=== PATIENT | male | born 1950 | race Caucasian/White ===

== ENCOUNTER 2016-12-14 18:38 | Emergency (ER) | payer MEDICARE, BC ==
[2016-12-14 18:52] VITALS: BP 131/108; PULSE 88; RESP 18; TEMP 97.9
[2016-12-14] MEDS ORDERED: PROPARACAINE 0.5% OPHTH DROPS 15 ML BTL RIGHT EYE STA (18:54)
--- NOTE | 2016-12-14 19:08 | XR ---
EXAMINATION TYPE: XR knee complete LT DATE OF EXAM: 12/14/2016 COMPARISON: NONE HISTORY: Knee pain TECHNIQUE: 3 views FINDINGS: I see no fracture nor dislocation. There is minor spurring of the medial femoral and tibial condyles. There is calcification inferior to the patella that could relate to old injury. There is n o sign of joint effusion. IMPRESSION: Mild osteoarthritis. No fracture.
--- NOTE | 2016-12-14 19:13 | ED ---
Lower Extremity Injury HPI - General Chief Complaint: Extremity Injury, Lower Stated Complaint: L knee injury Time Seen by Provider: 12/14/16 18:47 Source: patient, RN notes reviewed Mode of arrival: wheelchair Limitations: no limitations - History of Present Illness Initial Comments: 66-year-old male presents emergency Department chief complaint left knee pain. Patient states that he has some soreness over the last few days but states that he took 2 steps leaving the final to get back into a [id number] and states that he had instant pain. He states is worse when he began rating really no pain at rest does have some discomfort with passive range of motion. Denies any falls no traumas. Patient had prior orthopedic [facility]. Patient denies any swelling, ecchymosis or erythema to his left knee no history gout. - Related Data Home Medications Medication Instructions Recorded Confirmed No Known Home Medications [No 12/14/16 12/14/16 Known Home Medications] Allergies Allergy/AdvReac Type Severity Reaction Status Date / Time No Known Allergies Allergy Verified 12/14/16 18:52 Review of Systems ROS Statement: Those systems with pertinent positive or pertinent negative responses have been documented in the HPI. ROS Other: All systems not noted in ROS Statement are negative. Past Medical History Past Medical History: No Reported History History of Any Multi-Drug Resistant Organisms: None Reported Past Surgical History: Orthopedic Surgery Additional Past Surgical History / Comment(s): Right shoulder, right knee Past Psychological History: No Psychological Hx Reported Smoking Status: Never smoker Past Alcohol Use History: None Reported Past Drug Use History: None Reported General Exam Limitations: no limitations General appearance: alert, in no apparent distress Respiratory exam: Present: normal lung sounds bilaterally. Absent: respiratory distress, wheezes, rales, rhonchi, stridor Cardiovascular Exam: Present: regular rate, normal rhythm, normal heart sounds. Absent: systolic murmur, diastolic murmur, rubs, gallop, clicks Extremities exam: Present: other (Left knee patient has some mild discomfort with range of motion there is no tenderness with palpation and no laxity with valgus or varus does have some discomfort with anterior drawer test but no true laxity noted pedal pulses are equal bilaterally) Neurological exam: Present: alert, oriented X3, CN II-XII intact, reflexes normal. Absent: motor sensory deficit Course Vital Signs 12/14/16 18:50 Temperature 97.9 F Pulse Rate 88 Respiratory 18 Rate Blood Pressure 131/108 O2 Sat by Pulse 96 Oximetry Medical Decision Making - Medical Decision Making 66-year-old presented for left knee. Patient is no acute fracture patient has severe arthritis noted he may have meniscus injury we did discuss this. Patient will follow-up with orthopedics as [facility] is [facility] past. Return parameters were discussed. Disposition Clinical Impression: Left knee injury Disposition: HOME SELF-CARE Condition: Stable Instructions: Knee Pain (ED) Additional Instructions: Please return to the Emergency Department if symptoms worsen or any other concerns. Referrals: Bryant Squires MD [Primary Care Provider] - 1-2 days Louis Huntley MD [STAFF PHYSICIAN] - 1-2 days Time of Disposition: 19:12
== END 2016-12-14 19:20 | disposition home or self-care (01) ==
LOC: EC 18:38
DX: S89.92XA Unspecified injury of left lower leg, initial encounter (principal); M25.562 Pain in left knee; Z98.890 Other specified postprocedural states; X58.XXXA Exposure to other specified factors, initial encounter
CPT/HCPCS: 99283

== ENCOUNTER → 2017-01-19 | Outpatient (CLI) | payer MEDICARE, BC ==
[2017-01-19 11:12] LABS: Aty Lym Flag Slight; CH 31.6; CHCM 33.5; HCT 49.1 % (39.0-53.0); HDW 2.62; HGB 16.2 gm/dL (13.0-17.5); MCH 31.3 pg (25.0-35.0); MCHC 33.1 g/dL (31.0-37.0); MCV 94.8 fL (80.0-100.0); Mean Platelet Volume 6.8; RBC 5.18 m/uL (4.30-5.90); RDW 13.5 % (11.5-15.5); WBC 3.9 k/uL (3.8-10.6); WBC (Perox) 4.23
[2017-01-19 12:39] LABS: Add Differential Manual Differential
[2017-01-19 12:41] LABS: Manual Review Performed; Nucleated Red Blood Cells 0 /100 WBC (0-0); Total Cells Counted 100
[2017-01-19 12:47] LABS: Erythrocyte Sedimentation Rate 24 mm/hr (0-15)
[2017-01-19 13:01] LABS: RBC, Body Fluid 0 /uL; Synovial Crystal Source Left Knee
== END | disposition home or self-care (01) ==
LOC: LABWHC1 10:16
PROVIDERS: ATTEND Orthopaedic Surgery
DX: M17.12 Unilateral primary osteoarthritis, left knee (principal); S83.242D Other tear of medial meniscus, current injury, left knee, subsequent encounter; M25.462 Effusion, left knee
CPT/HCPCS: 36415; 85025; 85652; 86140; 87070; 87075; 87205; 89050; 89060

== ENCOUNTER → 2017-03-11 | Outpatient (CLI) | payer MEDICARE, BC ==
[2017-03-11 11:53] LABS: Basophils % (A) 1 %; CH 32.3; Eosinophils # (A) 0.3 k/uL (0-0.7); Eosinophils % (A) 3 %; HCT 45.5 % (39.0-53.0); HDW 2.63; HGB 14.6 gm/dL (13.0-17.5); Luc # (Auto) 0.13; Luc % (Auto) 2; Lymphocytes # (A) 0.9 k/uL (1.0-4.8); Lymphocytes % (A) 12 %; MCH 30.8 pg (25.0-35.0); MCHC 32.2 g/dL (31.0-37.0); MCV 95.6 fL (80.0-100.0); Mean Platelet Volume 7.4; Monocytes # (A) 0.3 k/uL (0-1.0); Monocytes % (A) 5 %; Neutrophils % (A) 78 %; RBC 4.75 m/uL (4.30-5.90); RDW 14.8 % (11.5-15.5); WBC 7.7 k/uL (3.8-10.6); WBC (Perox) 7.54
[2017-03-11 13:36] LABS: RBC, Body Fluid 6250 /uL
[2017-03-11 13:54] LABS: Synovial Crystal Source Left Knee
[2017-03-11 15:08] LABS: Erythrocyte Sedimentation Rate 19 mm/hr (0-15)
== END | disposition home or self-care (01) ==
LOC: LABWHC1 11:23
PROVIDERS: ATTEND Orthopaedic Surgery
DX: Z48.89 Encounter for other specified surgical aftercare (principal); M25.572 Pain in left ankle and joints of left foot; M25.562 Pain in left knee; M17.12 Unilateral primary osteoarthritis, left knee; M25.462 Effusion, left knee
CPT/HCPCS: 36415; 85025; 85652; 86140; 87070; 87075; 87205; 89050; 89060

== ENCOUNTER → 2018-02-07 | Outpatient (CLI) | payer MEDICARE, BC ==
--- NOTE | 2018-02-07 18:36 | ECHOF ---
Referral Reason:R01.1 Cardiac Murmur MEASUREMENTS -------- HEIGHT: 182.9 cm WEIGHT: 99.8 kg BP: 164/80 RVIDd: 3.2 cm (< 3.3) IVSd: 1.4 cm (0.6 - 1.1) LVIDd: 4.7 cm (3.9 - 5.3) LVPWd: 1.5 cm (0.6 - 1.1) IVSs: 2.1 cm LVIDs: 3.1 cm LVPWs: 1.7 cm LA Diam: 3.8 cm (2.7 - 3.8) LAESV Index (A-L): 30.38 ml/m Ao Diam: 3.9 cm (2.0 - 3.7) AV Cusp: 1.8 cm (1.5 - 2.6) MV EXCURSION: 20.824 mm (> 18.000) MV EF SLOPE: 83 mm/s (70 - 150) EPSS: 0.3 cm MV E Mainor: 0.73 m/s MV DecT: 211 ms MV A Mainor: 0.60 m/s MV E/A Ratio: 1.21 AR PHT: 810 ms FINDINGS -------- Sinus rhythm. This was a technically adequate study. The left ventricular size is normal. There is moderate concentric left ventricular hypertrophy. O verall left ventricular systolic function is normal with, an EF between 60 - 65 %. The right ventricle is normal in size. LA is midly dilated 29-33ml/m2. The right atrium is normal in size. There is mild aortic valve sclerosis. There is mild aortic regurgitation. Mild mitral annular calcification present. The tricuspid valve appears structurally normal. Trace/mild (physiologic) pulmonic regurgitation. The aortic root is dilated measuring 3.9cm. Normal inferior vena cava with normal inspiratory collapse consistent with estimated right atrial pre ssure of 5 mmHg. The inferior vena cava is mildly dilated. There is no pericardial effusion. CONCLUSIONS -------- 1. Sinus rhythm. 2. This was a technically adequate study. 3. The left ventricular size is normal. 4. There is moderate concentric left ventricular hypertrophy. 5. Overall left ventricular systolic function is normal with, an EF between 60 - 65 %. 6. The right ventricle is normal in size. 7. LA is midly dilated 29-33ml/m2. 8. The right atrium is normal in size. 9. There is mild aortic valve sclerosis. 10. There is mild aortic regurgitation. 11. Mild mitral annular calcification present. 12. The tricuspid valve appears structurally normal. 13. Trace/mild (physiologic) pulmonic regurgitation. 14. The aortic root is dilated measuring 3.9cm. 15. Normal inferior vena cava with normal inspiratory collapse consistent with estimated right atrial pressure of 5 mmHg. 16. The inferior vena cava is mildly dilated. 17. There is no pericardial effusion. SOFTWARE IMPLEMENTATION SPECIALIST: Lori Garcia RDCS
== END | disposition home or self-care (01) ==
LOC: RADECHMAIN 16:14
PROVIDERS: ATTEND Family Medicine
DX: I35.1 Nonrheumatic aortic (valve) insufficiency (principal); I05.9 Rheumatic mitral valve disease, unspecified; I37.1 Nonrheumatic pulmonary valve insufficiency
CPT/HCPCS: 93306

== ENCOUNTER 2018-07-15 13:30 | Emergency (ER) | payer MEDICARE, BC ==
--- NOTE | 2018-07-15 14:23 | XR ---
Calcaneus and right ankle HISTORY: Trauma and pain 3 views of the right ankle and 2 views of the calcaneus. There is an intra-articular comminuted distal tibial fracture with slight displacement, associated so ft tissue swelling and likely joint effusion. No evident dislocation. Ossific densities about the ank le are noted, fragment distal to the fibula appears to be well-corticated. There are vascular calcifi cations present. Small plantar calcaneal spur. Small ossific density lateral to the calcaneus could r epresent a small chip fracture. IMPRESSION: Fractures described.
--- NOTE | 2018-07-15 14:48 | ED ---
General Adult HPI - General Chief complaint: Fall Stated complaint: Fell Time Seen by Provider: 07/15/18 13:44 Source: patient, RN notes reviewed Mode of arrival: ambulatory Limitations: no limitations - History of Present Illness Initial comments: Patient 68-year-old male presenting to the emergency room today with a chief complaint of injury to the right ankle. He does admit that he was working on a garage door when one of the [place] came hit him causing her to fall off the ladder down onto the cement ground. He states landed on the right foot. Patient does admit to pain to the right ankle right heel area. Denies any head injury or loss consciousness. Patient does admit to small cut to the inside of the upper lip. He states his tetanus is up-to-date. Patient denies any other complaints or symptoms. Patient denies any recent fever, chills, shortness of breath, chest pain, back pain, abdominal pain, nausea or vomiting, numbness or tingling, headaches or visual changes, or any other complaints. - Related Data Previous Rx's Medication Instructions Recorded Hydrocodone/Acetaminophen [[place] 1 tab PO Q6HR PRN #20 tab 12/14/16 5-325] Allergies Allergy/AdvReac Type Severity Reaction Status Date / Time No Known Allergies Allergy Verified 07/15/18 13:42 Review of Systems ROS Statement: Those systems with pertinent positive or pertinent negative responses have been documented in the HPI. ROS Other: All systems not noted in ROS Statement are negative. Past Medical History Past Medical History: Hypertension Additional Past Medical History / Comment(s): inflammation History of Any Multi-Drug Resistant Organisms: None Reported Past Surgical History: Orthopedic Surgery Additional Past Surgical History / Comment(s): Right shoulder, right knee Past Psychological History: No Psychological Hx Reported Smoking Status: Never smoker Past Alcohol Use History: None Reported Past Drug Use History: None Reported General Exam - General Exam Comments Initial Comments: General: The patient is awake and alert, in no distress, and does not appear acutely ill. Neck: The neck is supple, there is no tenderness or JVD. Musculoskeletal: Patient has normal appearance right foot and ankle no obvious deformity. He does have some mild tenderness over both lateral medial malleolus of the right ankle. No tenderness down to the right foot. There is some tenderness over the calcaneus. No tenderness to the right knee. No tenderness to the low back. Pedal pulses 2+. Sensation intact. Neurological: A&O x 3. CN II-XII intact, There are no obvious motor or sensory deficits. Coordination appears grossly intact. Speech is normal. Skin: Skin is warm and dry and no rashes or lesions are noted. Psychiatric: Normal mood and affect. Limitations: no limitations Course Vital Signs 07/15/18 13:38 Temperature 98.0 F Pulse Rate 65 Respiratory 16 Rate Blood Pressure 189/98 O2 Sat by Pulse 96 Oximetry Procedures - Procedures Initial comment: Short leg posterior OCL splint applied to the right ankle. Neurovascular rechecked and intact. Medical Decision Making - Medical Decision Making X-ray reviewed and does show distal tibia fracture. Results were discussed with the patient. Patient splinted in a posterior short leg OCL splint. Does have crutches is advised nonweightbearing. Advised following up with the orthopedic doctor over the next 2 days. Advised return if symptoms increase or worsen or for any other concerns. Disposition Clinical Impression: Ankle fracture, right Disposition: HOME SELF-CARE Condition: Good Instructions: Ankle Fracture (DC) Additional Instructions: Please see splinted in place until follow-up appointment with orthopedics over the next 2 days. Please continue to ice elevate the affected area. Please use crutches nonweightbearing. Please return to emergency room for any other concerns. Is patient prescribed a controlled substance at d/c from ED?: No Referrals: David Goins MD [Primary Care Provider] - 1-2 days Pérez Oliva MD [Medical Doctor] - 1-2 days Time of Disposition: 14:48
[2018-07-15 15:12] VITALS: BP 168/72; PULSE 88; RESP 19; TEMP 97.6
== END 2018-07-15 15:00 | disposition home or self-care (01) ==
LOC: EC 13:30
DX: S82.301A Unspecified fracture of lower end of right tibia, initial encounter for closed fracture (principal); S01.511A Laceration without foreign body of lip, initial encounter; W11.XXXA Fall on and from ladder, initial encounter; Y93.89 Activity, other specified; Y92.009 Unspecified place in unspecified non-institutional (private) residence as the place of occurrence of the external cause
CPT/HCPCS: 29515; 99283

== ENCOUNTER → 2019-04-09 | Outpatient (CLI) | payer MEDICARE, BC ==
--- NOTE | 2019-04-10 11:07 | US ---
EXAMINATION TYPE: US kidneys/renal and bladder DATE OF EXAM: 04/09/2019 COMPARISON: NONE CLINICAL HISTORY: R94.4 Abnormal results of kidney function studies. no symptoms, on anti-inflammator ies EXAM MEASUREMENTS: Right Kidney: 12.5 x 6.3 x 8.3 cm Left Kidney: 11.9 x 5.0 x 5.3 cm Right Kidney: multiple cystic areas seen, largest = 5.0cm. There is poor cortical medullary different iation. The right kidney is not entirely visualized. Left Kidney: No hydronephrosis or masses seen Bladder: wnl Bilateral Jets seen: yes There is no evidence for hydronephrosis at this point in time. No nephrolithiasis is seen. The urina ry bladder is anechoic. Bilateral ureteral jets are seen. IMPRESSION: 1. Multiple right renal cysts are seen however the entirety of the right kidney is not visualized and CT could be considered to further evaluate for any solid renal mass. There is also poor corticomedul paulo differentiation suggesting sequela of chronic medical renal disease on the right there is asymme tric to the left. 2. No evidence of hydronephrosis of either kidney.
== END | disposition home or self-care (01) ==
LOC: RADUSWWP 16:20
PROVIDERS: ATTEND Family Medicine
DX: Q61.02 Congenital multiple renal cysts (principal); N18.3 Chronic kidney disease, stage 3 (moderate)
CPT/HCPCS: 76770

== ENCOUNTER 2019-08-29 17:28 | Emergency (ER) | payer OTHER, MEDICARE, BC ==
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
[2019-08-29 19:16] VITALS: BP 144/96; PULSE 70; RESP 16; TEMP 97.9
== END 2019-08-29 19:10 | disposition home or self-care (01) ==
LOC: EC 17:28
DX: M25.512 Pain in left shoulder (principal); M54.2 Cervicalgia; I10 Essential (primary) hypertension; Z98.890 Other specified postprocedural states; V59.49XA Driver of pick-up truck or van injured in collision with other motor vehicles in traffic accident, initial encounter; Y92.410 Unspecified street and highway as the place of occurrence of the external cause
CPT/HCPCS: 99284

== ENCOUNTER 2020-03-17 11:25 | Emergency (ER) | payer MEDICARE, BC ==
[2020-03-17 11:47] VITALS: BP 173/87; PULSE 76; RESP 18; TEMP 98.1
--- NOTE | 2020-03-17 12:37 | XR ---
EXAMINATION TYPE: XR shoulder complete RT DATE OF EXAM: 03/17/2020 CLINICAL HISTORY: Pain from fall injury last night. TECHNIQUE: Three views of the right shoulder are obtained. COMPARISON: None. FINDINGS: There is no acute fracture/dislocation evident in the right shoulder. Mild to moderate mar[place] rowing at acromioclavicular joint with curvilinear well-defined 12 x 5 mm ossific density could refle ct product of old trauma or old fractured osteophyte. Glenohumeral joint shows [id number] narro wing. Subchondral cystic change superolateral humeral head is present. The visualized ribs are intac t and unremarkable. IMPRESSION: There is no acute fracture or dislocation in the right shoulder.
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
== END 2020-03-17 12:46 | disposition home or self-care (01) ==
LOC: EC 11:25
DX: S46.911A Strain of unspecified muscle, fascia and tendon at shoulder and upper arm level, right arm, initial encounter (principal); W18.30XA Fall on same level, unspecified, initial encounter; Y92.821 Forest as the place of occurrence of the external cause
CPT/HCPCS: 99284

== ENCOUNTER → 2020-06-17 | Outpatient (CLI) | payer MEDICARE, BC ==
[2020-06-17 13:44] LABS: Anisocytosis Slight; Basophils # (A) 0.1 k/uL (0-0.2); Basophils % (A) 1 %; Eosinophils # (A) 0.3 k/uL (0-0.7); Eosinophils % (A) 4 %; HCT 39.9 % (39.0-53.0); HGB 12.2 gm/dL (13.0-17.5); Hypochromasia Marked; Lymphocytes % (A) 14 %; MCH 25.9 pg (25.0-35.0); MCHC 30.6 g/dL (31.0-37.0); MCV 84.5 fL (80.0-100.0); Mean Platelet Volume 7.3; Monocytes # (A) 0.5 k/uL (0-1.0); Monocytes % (A) 7 %; Neutrophils # (A) 5.1 k/uL (1.3-7.7); Neutrophils % (A) 72 %; Platelet Count 284 k/uL (150-450); RBC 4.72 m/uL (4.30-5.90); RDW 17.3 % (11.5-15.5)
[2020-06-17 19:50] LABS: INR 0.92 (0.90-1.11)
[2020-06-17 19:54] LABS: African American GFR (CKD) 58.2 (60.0-200.0); Albumin 4.2 g/dL (3.80-4.90); Albumin/Globulin Ratio 1.62 (1.60-3.17); Anion Gap 6.3 mmol/L (4.00-12.00); Calcium 9.5 mg/dL (8.7-10.3); Carbon Dioxide 28.7 mmol/L (21.6-31.8); Globulin 2.6 g/dL (1.6-3.3); Non-African American GFR(CKD) 50.2 (60.0-200.0); Potassium 5.2 mmol/L (3.5-5.5); Total Bilirubin 0.7 mg/dL (0.2-1.2); Total Protein 6.8 g/dL (6.2-8.2)
== END | disposition home or self-care (01) ==
LOC: LABWHC1 11:22
PROVIDERS: ATTEND Nurse Practitioner Family
DX: Z01.818 Encounter for other preprocedural examination (principal)
CPT/HCPCS: 36415; 80053; 85025; 85610; 93005

== ENCOUNTER 2020-08-01 16:08 | Emergency (ER) | payer MEDICARE, BC ==
[2020-08-01 16:12] VITALS: PULSE 89; RESP 18
--- NOTE | 2020-08-01 17:01 | XR ---
EXAMINATION TYPE: XR shoulder complete RT DATE OF EXAM: 08/01/2020 COMPARISON: 03/17/2020 HISTORY: Shoulder pain TECHNIQUE: 3 views FINDINGS: There is right shoulder prosthesis. Components appear in anatomic position. I see no fractu re nor dislocation. IMPRESSION: No fracture seen.
--- NOTE | 2020-08-01 17:09 | ED ---
Upper Extremity HPI - General Chief Complaint: Extremity Injury, Upper Stated Complaint: Shoulder injury Time Seen by Provider: 08/01/20 16:13 Source: patient, old records reviewed Mode of arrival: ambulatory Limitations: no limitations - History of Present Illness Initial Comments: 70-year-old male presents emergency Department chief complaint of right shoulder pain. Patient had total shoulder replacement one month ago by Dr. Otto. Patient states that he was doing well had full range of motion with states that he pulls of her back on his tractor and states he felt a pop. Patient states she's had pain has not gone down. Patient does not take any current narcotic pain meds. Denies any numbness or tingling no change in color or warmth to his arm. Patient denies any chest pain. - Related Data Home Medications Medication Instructions Recorded Confirmed Carvedilol [Coreg] 3.125 mg PO BID 08/01/20 08/01/20 Cyanocobalamin (Vitamin B-12) 10,000 mcg PO DAILY 08/01/20 08/01/20 [Vitamin B-12] Finasteride [Proscar] 5 mg PO HS 08/01/20 08/01/20 Tamsulosin HCl [Flomax] 0.4 mg PO HS 08/01/20 08/01/20 lisinopriL [Zestril] 5 mg PO HS 08/01/20 08/01/20 Allergies Allergy/AdvReac Type Severity Reaction Status Date / Time No Known Allergies Allergy Verified 08/01/20 16:46 Review of Systems ROS Statement: Those systems with pertinent positive or pertinent negative responses have been documented in the HPI. ROS Other: All systems not noted in ROS Statement are negative. Past Medical History Past Medical History: Hypertension Additional Past Medical History / Comment(s): inflammation History of Any Multi-Drug Resistant Organisms: None Reported Past Surgical History: Orthopedic Surgery Additional Past Surgical History / Comment(s): Right shoulder, right knee Past Psychological History: No Psychological Hx Reported Past Alcohol Use History: None Reported Past Drug Use History: None Reported General Exam Limitations: no limitations General appearance: alert, in no apparent distress Head exam: Present: atraumatic, normocephalic, normal inspection ENT exam: Present: normal exam, mucous membranes moist Neck exam: Present: normal inspection, full ROM. Absent: tenderness, meningismus, lymphadenopathy Respiratory exam: Present: normal lung sounds bilaterally. Absent: respiratory distress, wheezes, rales, rhonchi, stridor Cardiovascular Exam: Present: regular rate, normal rhythm, normal heart sounds. 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 Patient most likely has a ligamentous strain. Patient will follow-up with his surgeon will continue anti-inflammatories, icing we discussed sling use for rest but to limit secondary to causing decreased range of motion. Disposition Clinical Impression: Right shoulder pain Disposition: HOME SELF-CARE Condition: Stable Instructions (If sedation given, give patient instructions): Shoulder Pain (ED) Additional Instructions: Please return to the Emergency Department if symptoms worsen or any other concerns. Is patient prescribed a controlled substance at d/c from ED?: No Referrals: David Goins MD [Primary Care Provider] - 1-2 days Time of Disposition: 17:09
[2020-08-01 17:35] VITALS: BP 155/84
[2020-08-01 17:54] VITALS: TEMP 98.1
== END 2020-08-01 17:27 | disposition home or self-care (01) ==
LOC: EC 16:08
DX: M25.511 Pain in right shoulder (principal); I10 Essential (primary) hypertension; Z79.899 Other long term (current) drug therapy; Z96.611 Presence of right artificial shoulder joint
CPT/HCPCS: 99284

== ENCOUNTER → 2020-08-19 | Outpatient (CLI) | payer MEDICARE, BC ==
[2020-08-19 22:17] LABS: Basophils # (A) 0.06 X 10*3/uL (0.00-0.10); Basophils % (A) 0.7 %; Eosinophils # (A) 0.52 X 10*3/uL (0.04-0.35); Eosinophils % (A) 6.4 %; HCT 35.3 % (39.6-50.0); HGB 10.1 g/dL (13.0-17.0); Lymphocytes # (A) 1.31 X 10*3/uL (0.90-5.00); Lymphocytes % (A) 16.1 %; MCH 24.6 pg (27.0-32.0); MCHC 28.6 g/dL (32.0-37.0); MCV 86.1 fL (80.0-97.0); Mean Platelet Volume 10.5 fL (9.5-12.2); Monocytes # (A) 0.81 X 10*3/uL (0.20-1.00); Neutrophils % (A) 66.6 %; Platelet Count 411 X 10*3/uL (140-440); RDW 16.7 % (11.5-14.5); WBC 8.12 X 10*3/uL (4.50-10.00)
[2020-08-20 00:50] LABS: Erythrocyte Sedimentation Rate 29 mm/Hr (0-20)
== END | disposition home or self-care (01) ==
LOC: LABWHC1 15:44
PROVIDERS: ATTEND Nurse Practitioner
DX: M75.101 Unspecified rotator cuff tear or rupture of right shoulder, not specified as traumatic (principal); Z47.1 Aftercare following joint replacement surgery; Z96.611 Presence of right artificial shoulder joint
CPT/HCPCS: 36415; 85025; 85652; 86140

== ENCOUNTER → 2021-07-13 | Outpatient (CLI) | payer MEDICARE, BC | END | disposition home or self-care (01) | LOC: LABWHC1 06:59 | PROVIDERS: ATTEND Orthopaedic Surgery Foot and Ankle Surgery | DX: U07.1 COVID-19 (principal) | CPT/HCPCS: U0003; C9803 ==

== ENCOUNTER → 2022-07-13 | Outpatient (CLI) | payer MEDICARE, BC ==
[2022-07-13 18:33] LABS: Basophils # (A) 0.05 X 10*3/uL (0.00-0.10); Basophils % (A) 0.6 %; Eosinophils % (A) 3.5 %; HCT 34.9 % (39.6-50.0); HGB 9.5 g/dL (13.0-17.0); Immature Grans, Automated 0.5 %; Lymphocytes # (A) 0.86 X 10*3/uL (0.90-5.00); MCH 21.4 pg (27.0-32.0); MCHC 27.2 g/dL (32.0-37.0); MCV 78.8 fL (80.0-97.0); Mean Platelet Volume 10.1 fL (9.5-12.2); Monocytes # (A) 0.83 X 10*3/uL (0.20-1.00); Monocytes % (A) 9.7 %; NRBC Per 100 WBC 0 /100 WBCS (0.0-0.0); Neutrophils % (A) 75.7 %; Platelet Count 334 X 10*3/uL (140-440); RBC 4.43 X 10*6/uL (4.40-5.60); RDW 16.4 % (11.5-14.5); WBC 8.58 X 10*3/uL (4.50-10.00)
[2022-07-13 19:02] LABS: Erythrocyte Sedimentation Rate 22 mm/Hr (0-20)
[2022-07-13 19:25] LABS: % Iron Saturation 3.22 (15.00-50.00); African American GFR (CKD) 52.8 (60.0-200.0); Albumin/Globulin Ratio 1.54 (1.60-3.17); Anion Gap 10.8 mmol/L (10.00-18.00); BUN/Creat Ratio 13.73 Ratio (12.00-20.00); Blood Urea Nitrogen 20.6 mg/dL (9.0-27.0); C Reactive Protein 0.6 mg/dL (0.00-0.80); Calcium 9.2 mg/dL (8.7-10.3); Carbon Dioxide 25.2 mmol/L (20.0-27.5); Ferritin 7.8 ng/mL (22.0-322.0); Globulin 2.6 g/dL (1.6-3.3); Non-African American GFR(CKD) 45.5 (60.0-200.0); Potassium 4.5 mmol/L (3.5-5.5); Prealbumin 22.6 mg/dL (18.0-42.0); Total Bilirubin 0.8 mg/dL (0.30-1.20); Total Protein 6.6 g/dL (6.2-8.2)
== END | disposition home or self-care (01) ==
LOC: LABWHC1 12:47
PROVIDERS: ATTEND Family Medicine
DX: D50.9 Iron deficiency anemia, unspecified (principal); M86.672 Other chronic osteomyelitis, left ankle and foot
CPT/HCPCS: 36415; 80053; 82728; 83540; 83550; 84134; 85025; 85652; 86140

== ENCOUNTER → 2023-06-30 | Day surgery (SDC) | payer MEDICARE, BC ==
[~2023-06-30] MED LIST: SIMETHICONE 40 MG/0.6 ML DROPS 2,000 MG/30 ML BOTTLE PO ONE
[2023-06-30 07:41] VITALS: BP 162/89; RESP 18; TEMP 97.7
== END ==
LOC: ORWHC2ENDO 06:30
PROVIDERS: ATTEND Internal Medicine Gastroenterology
DX: D50.9 Iron deficiency anemia, unspecified (principal)
CPT/HCPCS: 91110

== ENCOUNTER → 2024-03-20 | Outpatient (CLI) | payer MEDICARE, BC ==
--- NOTE | 2024-03-20 11:08 | XR ---
EXAMINATION TYPE: XR chest 2V DATE OF EXAM: 03/20/2024 10:29 AM CLINICAL INDICATION: Male, 74 years old with history of R19.09 ABDOMINAL AND PELVIC SWELLING, MASS; P HH COMPARISON: Chest radiographs from 03/20/2024 TECHNIQUE: XR chest 2V Frontal view of the chest. FINDINGS: Lungs/Pleura: There is no evidence of pleural effusion, focal consolidation, or pneumothorax. Pulmonary vascularity: Unremarkable. Heart/mediastinum: Cardiomediastinal silhouette is unremarkable. Musculoskeletal: No acute osseous pathology. There is lower spine fixation hardware is present. Right shoulder arthroplasty appears intact. Moderate multilevel degeneration changes spine. Other findings: None IMPRESSION: Low lung volumes, No acute cardiopulmonary disease/process. [facility], , 03/20/2024 11:06 AM
--- NOTE | 2024-03-20 11:22 | XR ---
EXAMINATION TYPE: XR ribs RT DATE OF EXAM: 03/20/2024 10:29 AM CLINICAL INDICATION: Male, 74 years old with history of R19.09 ABDOMINAL AND PELVIC SWELLING, MASS; P HH COMPARISON: CT chest same day TECHNIQUE: XR ribs RT; Frontal and oblique views of the ribs with frontal chest radiograph. FINDINGS: The ribs have a normal appearance. No evidence of fracture. Overall, the lungs are clear. The cardiac silhouette is normal in size. The remaining osseous structures are intact. Shoulder art hroplasty appears intact. Fixation changes of the spine appear intact. Right upper quadrant cholecyst ectomy clips. IMPRESSION: No displaced rib fracture visualized. [facility], , 03/20/2024 11:20 AM
== END | disposition home or self-care (01) ==
LOC: RADXRMAIN 10:04
PROVIDERS: ATTEND Family Medicine
DX: R07.81 Pleurodynia (principal)
CPT/HCPCS: 71046

== ENCOUNTER → 2024-09-19 | Outpatient (CLI) | payer MEDICARE, BC ==
--- NOTE | 2024-09-19 08:15 | MR ---
EXAMINATION TYPE: MR brain wo con DATE OF EXAM: 09/19/2024 8:01 AM COMPARISON: None. CLINICAL INDICATION: Male, 74 years old with history of G45.9 TRANSIENT CEREBRAL ISCHEMIC ATTACK, UNS PECIF, TIA/CVA, speech affected , one time had numbness in left hand a month ago TECHNIQUE: Multi planar multi sequence imaging of the brain. FINDINGS: The ventricles, basal cisterns and sulci overlying the cerebral convexities are mildly enlarged. There is evidence of mild to moderate periventricular white matter ischemic demyelination. Remote deep white matter insults are also noted. No acute edema is seen on diffusion weighted imaging. There is no evidence for midline shift or mass effect. Acute intracranial hemorrhage or extra-axial collection is not evident. The paranasal sinuses and mastoid air cells are well-aerated. IMPRESSION: Age-related atrophic and chronic small vessel ischemic change. No acute intracranial process at this time. [facility], , 09/19/2024 8:13 AM
--- NOTE | 2024-09-19 08:17 | MR ---
EXAMINATION TYPE: MR angio head wo/neck wo/w con DATE OF EXAM: 09/19/2024 8:04 AM COMPARISON: None. CLINICAL INDICATION: Male, 74 years old with history of G45.9 TRANSIENT CEREBRAL ISCHEMIC ATTACK, UNS PECIF, TIA/CVA, speech affected , one time had numbness in left hand a month ago TECHNIQUE: Three-dimensional [id number]-ol-fversa intracranial MRA was performed with multiple intensity pr ojection images submitted and source data reviewed at the workstation. FINDINGS: The vertebrobasilar system as well as intracranial portions of the internal carotid arteries and thei r major tributaries are patent. I do not see evidence for sizable aneurysm or vascular malformation. IMPRESSION: Normal study. EXAMINATION TYPE: MR angio head wo/neck wo/w con DATE OF EXAM: 09/19/2024 8:04 AM COMPARISON: None. CLINICAL INDICATION: Male, 74 years old with history of G45.9 TRANSIENT CEREBRAL ISCHEMIC ATTACK, UNS PECIF, TIA/CVA, speech affected , one time had numbness in left hand a month ago TECHNIQUE: Three-dimensional [id number]-fw-ynfana cervical carotid MRA was performed with multiple intensit y projection images submitted and source data reviewed at the workstation. 3-D reformatted images and maximum intensity projection reformatted images were created on a separate workstation. FINDINGS: Right carotid system: There is mild plaque seen about the common carotid artery. Mild plaque is also seen at the origin and proximal aspect of the right internal carotid artery. Stenosis is estimated at less than 50%. No hemodynamically significant stenosis is appreciated. Right external carotid ar marquez right vertebral artery are patent. Left carotid system: Mild plaque involving the left common carotid artery. Minimal to mild plaque or igin left ICA. No hemodynamically significant stenosis is appreciated. External carotid artery and the left vertebral artery are patent. IMPRESSION: 1. No hemodynamically significant stenosis is appreciated at this time. [facility], , 09/19/2024 8:14 AM
== END | disposition home or self-care (01) ==
LOC: RADMRIMAIN 07:01
PROVIDERS: ATTEND Psychiatry & Neurology Neurology
DX: G45.9 Transient cerebral ischemic attack, unspecified (principal); Q45.9 Congenital malformation of digestive system, unspecified; G31.1 Senile degeneration of brain, not elsewhere classified; I67.82 Cerebral ischemia; Z86.73 Personal history of transient ischemic attack (TIA), and cerebral infarction without residual deficits
CPT/HCPCS: 70544; 70549; 70551; A9585

== ENCOUNTER → 2024-10-12 | Outpatient (CLI) | payer MEDICARE, BC ==
--- NOTE | 2024-10-12 19:26 | CA ---
Transthoracic Echo Report Name: Pérez Hinojosa Age: 74 Gender: M : 1950 Exam Date: 10/12/2024 13:23 Exam Location: [place] [facility] Ht (in): 72 Wt (lb): 220 Ordering Physician: Juan Antonio Peter DO Attending/Referring Phys: Juan Antonio Peter DO Caser Adry White, DEUCE Procedure CPT: Indications: G45.9 TIA I48.0 PAROXYSMAL ATRIAL FIBRILLATION Cardiac Hx: Technical Quality: Fair Contrast 1: Total Dose (mL): Contrast 2: Total Dose (mL): MEASUREMENTS (Male / Female) Normal Values 2D ECHO LV Diastolic Diameter PLAX 4.8 cm 4.2 - 5.9 / 3.9 - 5.3 cm LV Systolic Diameter PLAX 3.2 cm IVS Diastolic Thickness 1.6 cm 0.6 - 1.0 / 0.6 - 0.9 cm LVPW Diastolic Thickness 1.6 cm 0.6 - 1.0 / 0.6 - 0.9 cm LV Relative Wall Thickness 0.7 RV Internal Dim ED PLAX 4.1 cm LVOT Diameter 1.9 cm LV Diastolic Volume MOD BP 132.0 cm??? 67 - 155 / 56 - 104 cm??? LV Systolic Volume MOD BP 66.2 cm??? 22 - 58 / 19 - 49 cm??? LV Ejection Fraction MOD BP 49.9 % >= 55 % LV Cardiac Index MOD BP 2199.7 cm???/min???m??? LV Diastolic Volume MOD 4C 142.4 cm??? LV Systolic Volume MOD 4C 73.2 cm??? LV Ejection Fraction MOD 4C 48.6 % LV Cardiac Index MOD 4C 2312.6 cm???/min???m??? LV Diastolic Length 4C 8.6 cm LV Systolic Length 4C 7.7 cm LV Diastolic Volume MOD 2C 120.2 cm??? LV Systolic Volume MOD 2C 58.1 cm??? LV Ejection Fraction MOD 2C 51.7 % LV Cardiac Index MOD 2C 2076.4 cm???/min???m??? LV Diastolic Length 2C 8.8 cm LV Systolic Length 2C 7.4 cm LA Volume 64.1 cm??? 18 - 58 / 22 - 52 cm??? LA Volume Index 28.2 cm???/m??? 16 - 28 cm???/m??? DOPPLER AV Peak Velocity 188.4 cm/s AV Peak Gradient 14.2 mmHg AV Mean Velocity 134.0 cm/s AV Mean Gradient 7.8 mmHg AV Velocity Time Integral 40.2 cm LVOT Peak Velocity 136.4 cm/s LVOT Peak Gradient 7.4 mmHg LVOT Velocity Time Integral 30.0 cm LVOT Stroke Volume 88.3 cm??? LVOT Stroke Volume Index 39.8 ml/m??? LVOT Cardiac Index 2950.8 cm???/min???m??? AV Area Cont Eq vti 2.2 cm??? AV Area Cont Eq pk 2.1 cm??? MV Area PHT 2.6 cm??? Mitral E Point Velocity 65.5 cm/s Mitral A Point Velocity 91.8 cm/s Mitral E to A Ratio 0.7 MV Deceleration Time 290.7 ms MV E' Velocity 5.8 cm/s Mitral E to MV E' Ratio 11.2 FINDINGS Left Ventricle Moderate concentric left ventricular hypertrophy. Normal left ventricular systolic function with no obvious regional wall motion abnormalities. Left ventricular ejection fraction is estimated at 55 %. Right Ventricle Mild right ventricular dilatation. Right ventricular systolic pressure within normal limits. Right Atrium Normal right atrial size. Left Atrium Mildly increased left atrial volume. Mildly increased left atrial area. Mitral Valve Structurally normal mitral valve. Mild to moderate mitral regurgitation. Aortic Valve Mild to moderate aortic regurgitation and mild aortic stenosis Tricuspid Valve Structurally normal tricuspid valve. Mild tricuspid regurgitation. Pulmonic Valve Structurally normal pulmonic valve. Trace pulmonic regurgitation. Pericardium No pericardial effusion. Aorta Normal size aortic root and proximal ascending aorta. CONCLUSIONS Normal biventricular systolic function Mild to moderate aortic and mitral regurgitation and mild aortic stenosis Overall technically difficult study for interpretation Previewed by: Dr. Paresh Marie MD (Electronically Signed) Final Date: 12 October 2024 19:25
== END | disposition home or self-care (01) ==
LOC: RADECHMAIN 13:01
PROVIDERS: ATTEND Psychiatry & Neurology Neurology
DX: G45.9 Transient cerebral ischemic attack, unspecified (principal); I48.0 Paroxysmal atrial fibrillation; I35.0 Nonrheumatic aortic (valve) stenosis; I37.1 Nonrheumatic pulmonary valve insufficiency; I07.1 Rheumatic tricuspid insufficiency
CPT/HCPCS: 93270; 93306

== ENCOUNTER → 2024-10-30 | Outpatient (CLI) | payer MEDICARE, BC ==
[2024-10-30 15:06] LABS: Basophils # (A) 0.05 X 10*3/uL (0.00-0.10); Basophils % (A) 0.6 %; Eosinophils # (A) 0.19 X 10*3/uL (0.04-0.35); Eosinophils % (A) 2.4 %; HCT 36.8 % (39.6-50.0); HGB 11.5 g/dL (13.0-17.0); Lymphocytes # (A) 0.72 X 10*3/uL (0.90-5.00); Lymphocytes % (A) 9.2 %; MCH 30.9 pg (27.0-32.0); MCHC 31.3 g/dL (32.0-37.0); MCV 98.9 FL (80.0-97.0); Mean Platelet Volume 10.1 FL (9.5-12.2); Monocytes # (A) 0.78 X 10*3/uL (0.20-1.00); NRBC Per 100 WBC 0 X 10*3/uL (0.00-0.01); Neutrophils # (A) 6.02 X 10*3/uL (1.80-7.70); Platelet Count 370 X 10*3/uL (140-440); RBC 3.72 X 10*6/uL (4.40-5.60); WBC 7.82 X 10*3/uL (4.50-10.00)
[2024-10-30 19:24] LABS: BUN/Creat Ratio 16.75 Ratio (12.00-20.00); Blood Urea Nitrogen 20.1 mg/dL (9.0-27.0); Calcium 9.4 mg/dL (8.7-10.3); Carbon Dioxide 24.2 mmol/L (21.6-31.8); Chloride 108 mmol/L (96-109); Glucose 94 mg/dL (70-110); Potassium 5.2 mmol/L (3.5-5.5); Sodium 143 mmol/L (135-145)
[2024-10-30 21:26] LABS: Appearance,Urine Clear (Clear); Bilirubin,Urine Negative (Negative); Blood,Urine Negative (Negative); Color,Urine Yellow (Yellow); Ketones,Urine Negative (Negative); Nitrite,Urine Negative (Negative); PH, Urine 7.5; Specific Gravity,Urine 1.011 (1.001-1.030); Urobilinogen,Urine 0.2 E.U./DL
== END | disposition home or self-care (01) ==
LOC: LABWHC1 12:05
PROVIDERS: ATTEND Urology
DX: Z01.812 Encounter for preprocedural laboratory examination (principal); N52.9 Male erectile dysfunction, unspecified
CPT/HCPCS: 36415; 80048; 81003; 85025

== ENCOUNTER 2024-11-13 08:58 | Day surgery (SDC) | payer MEDICARE, BC ==
[~2024-11-13 08:58] MED LIST changes: +HYDROmorphone 0.5 MG/0.5 ML SYRINGE IVP PRN; +LIDOCAINE 1% (10MG/ML) FOR IV START INTRADERMA PRN; -SIMETHICONE 40 MG/0.6 ML DROPS 2,000 MG/30 ML BOTTLE PO ONE
[2024-11-13] MEDS: IV FLUID CONTINUATION 1,000 ML IV ONE (09:41)
[2024-11-13 09:59] VITALS: TEMP 97.2
[2024-11-13] MEDS: GENTAMICIN 40 MG/ML 2 ML VIAL IM PRN (10:07)
[2024-11-13] MEDS: ONDANSETRON 4 MG/2 ML VIAL IVP ONE (10:08)
[2024-11-13] MEDS: DEXAMETHASONE SOD PHOSPHATE 4 MG/ML 1 ML VIAL IV ONE (10:08)
[2024-11-13] MEDS: LACTATED RINGERS 1,000 ML IV SCH (10:11)
--- NOTE | 2024-11-13 10:26 | P.HPIHPCON ---
History of Present Illness H&P Date: 11/13/24 Chief Complaint: Erectile dysfunction This is a 74-year-old male with history of erectile dysfunction, he has failed PDE 5 inhibitors and intracavernosal injection. He was interested in proceeding with a penile prosthesis. Option of a malleable penile prosthesis versus inf latable penile prosthesis was discussed in details. He agreed to proceed with a malleable penile prosthesis. He is aware of the risk which include but not limited to bleeding, infection, injury to the penis. Discussed also risk of device malfunction. Discussed also once this is placed there is no other way for him to be able to obtain an erection. He understood all the risk and agreed to proceed Consent for Procedure: I have explained the operation/procedure to the patient, including the risks, benefits, side effects, alternative therapies (including not receiving the proposed treatment or service), the likelihood of the patient achieving his/her goals, and potential recuperation problems for the procedure/sedation/analgesia, as well as any blood products, if indicated. I also explained to the patient the risks, benefits and side effects of the alternatives, as well as the risks related to not receiving the proposed procedure, care, treatment, or services. Past Medical History Past Medical History: Hyperlipidemia, Hypertension, Osteoarthritis (OA) Additional Past Medical History / Comment(s): anemia - "last year Hgb went below 5 apporx 2022 - no trace of what is causing it , has had iron infusions History of Any Multi-Drug Resistant Organisms: None Reported Past Surgical History: Back Surgery, Cholecystectomy, Hernia Repair, Orthopedic Surgery Additional Past Surgical History / Comment(s): Bilat. shoulder arthroplasty, armando. THR, Bilat. TKA, Bilat. ankle surgery, back fusion, Rt. arm and elbow surgery back surgery x7 fused and rods Past Anesthesia/Blood Transfusion Reactions: No Reported Reaction Smoking Status: Never smoker - Past Family History Mother Family Medical History: Cancer Additional Family Medical History / Comment(s): of breast ca Daughter(s) Family Medical History: Cancer Additional Family Medical History / Comment(s): of breast ca Medications and Allergies Home Medications Medication Instructions Recorded Confirmed Type Cyanocobalamin (Vitamin B-12) 10,000 mcg PO DAILY 08/01/20 11/13/24 History [Vitamin B-12] Finasteride [Proscar] 5 mg PO HS 08/01/20 11/13/24 History Tamsulosin HCl [Flomax] 0.4 mg PO HS 08/01/20 11/13/24 History carvediloL [Coreg] 3.125 mg PO BID 08/01/20 11/13/24 History lisinopriL [Zestril] 5 mg PO QAM 08/01/20 11/13/24 History Aspirin [Adult Low Dose Aspirin EC] 81 mg PO DAILY 11/09/24 11/09/24 History Allergies Allergy/AdvReac Type Severity Reaction Status Date / Time No Known Allergies Allergy Verified 11/13/24 09:27 Surgical - Exam Vital Signs Temp Pulse Resp BP Pulse Ox 97.2 F L 77 17 135/77 96 11/13/24 09:27 11/13/24 09:27 11/13/24 09:27 11/13/24 09:27 11/13/24 09:27 - General no distress, no pain - Eyes normal ocular movement, no pale - ENT normal nares, normal mucosa - Respiratory normal expansion, normal respiratory effort - Abdomen Abdomen: soft, non tender Assessment and Plan Assessment: OR for insertion of malleable penile prosthesis
[2024-11-13] MEDS ORDERED: ePHEDrine 50 MG/ML 1 ML VIAL ONE (10:45)
[2024-11-13] MEDS ORDERED: SUCCINYLCHOLINE CHLORIDE 200 MG/10 ML VIAL IV ONE (10:45)
[2024-11-13] MEDS ORDERED: PHENYLEPHRINE-0.9% NACL SYG 1,000 MCG/10 ML SYRINGE ONE (10:45)
[2024-11-13] MEDS ORDERED: ROCURONIUM 10 MG/ML (5 ML VIAL) IV ONE (10:45)
[2024-11-13] MEDS ORDERED: MIDAZOLAM 2 MG/2 ML VIAL ONE (10:45)
[2024-11-13] MEDS ORDERED: PROPOFOL 10 MG/ML 20 ML VIAL IV ONE (10:45)
[2024-11-13] MEDS ORDERED: fentaNYL (PF) 50 MCG/ML 2 ML AMP ONE (10:45)
[2024-11-13] MEDS ORDERED: LIDOCAINE 1% INJ 10MG/ML (20 ML MDV) ONE (10:45)
[2024-11-13] MEDS ORDERED: GLYCOPYRROLATE 0.2 MG/ML 2 ML VIAL ONE (10:45)
[2024-11-13] MEDS ORDERED: NEOSTIGMINE 1 MG/ML 10 ML VIAL ONE (10:45)
[2024-11-13] MEDS: VANCOMYCIN 750 MG in SODIUM CHLORIDE 0.9% 250 ML IVPB PRN (10:48)
[2024-11-13] MEDS: BUPIVACAINE (PF) 0.25% 30 ML VIAL SQ ONE (11:55)
--- NOTE | 2024-11-13 12:21 | P.OP ---
Date of Procedure: 11/13/24 Preoperative Diagnosis: Erectile dysfunction Postoperative Diagnosis: Same Procedure(s) Performed: Insertion of inflatable penile prosthesis Anesthesia: CHANELL Surgeon: Tomas Thompson Estimated Blood Loss (ml): 25 Pathology: none sent Condition: stable Disposition: PACU Indications for Procedure: This is a 74-year-old male with history of erectile dysfunction, he has failed PDE 5 inhibitors and intracavernosal injection. He was interested in proceeding with a penile prosthesis. Option of a malleable penile prosthesis versus inflatable penile prosthesis was discussed in details. He agreed to proceed with a malleable penile prosthesis. He is aware of the risk which include but not limited to bleeding, infection, injury to the penis. Discussed also risk of device malfunction. Discussed also once this is placed there is no other way for him to be able to obtain an erection. He understood all the risk and agreed to proceed Description of Procedure: Patient brought the operating room And anesthesia was induced. He was prepped and draped in sterile fashion placed in supine position. Next a 16 Yoruba Cervantes was placed. Next a infrapubic incision was made using a scalpel, subcutaneous tissue was dissected down using cautery, dissection was carried down to the corporal bodies, this time the corporal bodies were completely dissected. Next using a 2-0 PDS a stay stitch was placed in each corporal bodies. The corporal were incised using a scalpel, and using the Hegar dilators corporal bodies were dilated to 12 Yoruba. Next both corpora's were measured. The surgical field was irrigated using antibiotic solution. A 17.5 cm, with 1/2 cm data integration developer was placed on the right, and a 16.5 cm and a half a centimeter data integration developer was placed on the left at this time there was no kinking or abnormality seen following placement. Both corporotomies were closed using 2-0 Vicryl, subcutaneous tissue was closed using 3-0 Vicryl. Skin was closed using 4-0 Monocryl. Skin glue was applied to the incision. Patient tolerated procedure well taken to recovery in stable condition
[2024-11-13 13:01] VITALS: RESP 18
[2024-11-13 13:28] VITALS: BP 148/76; PULSE 66
== END 2024-11-13 13:49 | disposition home or self-care (01) ==
LOC: OR 08:58
PROVIDERS: ATTEND Urology
DX: N52.9 Male erectile dysfunction, unspecified (principal); I10 Essential (primary) hypertension; E78.5 Hyperlipidemia, unspecified; D64.9 Anemia, unspecified; Z79.82 Long term (current) use of aspirin; Z79.899 Other long term (current) drug therapy
CPT/HCPCS: 54400; C1813; J2250; J3370; J0330; J1580; J1100; J2710; J2405; J2003; J3010; J2704; J2371; J0665; J1596